=== PATIENT | male | born 1960 | race American Indian/Alaskan Native ===

== ENCOUNTER 2021-04-22 10:01 | Observation (INO) | payer OTHER ==
[2021-04-22] MEDS ORDERED: HYDROcodone/ACETAMINOPHEN 10-325MG TAB PO ONE (11:12)
[2021-04-22] MEDS ORDERED: LIDOCAINE (1%) 10 MG/1 ML VIAL 20 ML MDV INFILTRATI ONE (11:12)
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
[2021-04-22 11:55] LABS: Basophils % (Auto) 0.3 % (0.0-1.8); Eosinophils % (Auto) 0.2 % (0.0-4.3); Hematocrit 36.5 % (35.5-45.6); Lymphocytes % (Auto) 8.3 % (13.4-35.0); Mean Corpuscular HGB Conc 33 % (32-34); Mean Corpuscular Volume 87 fl (84-94); Monocytes # (Auto) 0.8 K/mm3 (0.0-0.8); Platelet Count 265 K/mm3 (140-440); Red Cell Distribution Width 14.9 % (13.2-15.2)
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
[2021-04-22 12:06] LABS: Alanine Aminotransferase 45 units/L (7-56); Albumin 4.1 g/dL (3.9-5); Blood Urea Nitrogen 14 mg/dL (9-20); Calcium 9.1 mg/dL (8.4-10.2); Hemolysis Index 4
[2021-04-22 12:09] LABS: BUN/Creatinine Ratio 28
[2021-04-22] MEDS ORDERED: TETANUS,DIPH,PERTUSS(ACELL) VACCINE 0.5 ML SYRINGE IM ONE (13:17)
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
[2021-04-22] MEDS ORDERED: NEOMY 3.5 MG/BACIT 400 UNITS/POLY B 5000 UNITS/GM OINT PACKET TP ONE (16:00)
--- NOTE | 2021-04-22 18:00 | Emergency Department Report ---
Blank Doc - Documentation Documentation: Procedure noted: Laceration repair Lidocaine 2% used -approximately 20 cc total for all wounds Wounds irrigated well with normal saline approximately 400 cc Location #1: Left hand -- ~4 cm superficial laceration dorsal left hand. Bleeding controlled with pressure. Fifteen sutures placed using 4-0 Ethilon; approximately 6 cm deep laceration noted to the thenar eminence of the left hand, with no foreign body, no tendon in the muscle or fascia injury. No active bleeding. Sixteen sutures placed using 4-0 Ethilon Location#2: Left wrist/left hand --approximately 9 cm laceration starting at the base of the palmar surface of the left hand extending into the volar left wrist; laceration is deep but without any apparent foreign body, tendon or muscle injury; bleeding controlled with pressure. Twenty 4 sutures placed using 4-0 Ethilon Dressing applied Patient tolerated procedure well without any complications
[2021-04-22] MEDS ORDERED: oxyCODONE /ACETAMINOPHEN 5-325MG TAB PO PRN (23:23)
[2021-04-22] MEDS ORDERED: ACETAMINOPHEN 325 MG TAB PO PRN (23:23)
[2021-04-22] MEDS ORDERED: ONDANSETRON 4 MG/2 ML INJ IV PRN (23:23)
[2021-04-22] MEDS ORDERED: HYDROmorphone 1 MG/1 ML INJ IV PRN (23:23)
[2021-04-22] MEDS ORDERED: IBUPROFEN 600 MG TAB PO PRN (23:23)
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
[2021-04-22] MEDS ORDERED: IPRATROPIUM/ALBUTEROL SULFATE 3 ML AMPUL.NEB IH PRN (23:27)
[2021-04-22] MEDS ORDERED: KETOROLAC 30 MG/1 ML INJ IV PRN (23:28)
[2021-04-22] MEDS ORDERED: SODIUM CHLORIDE 0.9% 1000 ML 1,000 ML IV SCH (23:30)
[2021-04-22] MEDS ORDERED: ALBUTEROL 2.5 MG/3 ML NEBU IH PRN (23:47)
[2021-04-23 04:45] VITALS: BP 157/65
[2021-04-23 06:08] LABS: Basophils % (Auto) 0.1 % (0.0-1.8); Eosinophils % (Auto) 0.2 % (0.0-4.3); Hematocrit 34.6 % (35.5-45.6); Hemoglobin 11.5 gm/dl (11.8-15.2); Lymphocytes # (Auto) 1.6 K/mm3 (1.2-5.4); Lymphocytes % (Auto) 15.6 % (13.4-35.0); Mean Corpuscular HGB Conc 33 % (32-34); Mean Corpuscular Volume 87 fl (84-94); Monocytes # (Auto) 0.9 K/mm3 (0.0-0.8); Monocytes % (Auto) 9.3 % (0.0-7.3); Platelet Count 249 K/mm3 (140-440); Red Cell Distribution Width 14.7 % (13.2-15.2)
[2021-04-23 06:17] LABS: Alanine Aminotransferase 37 units/L (7-56); Albumin 3.5 g/dL (3.9-5); Blood Urea Nitrogen 9 mg/dL (9-20); Calcium 8.6 mg/dL (8.4-10.2); Hemolysis Index 0
[2021-04-23 07:03] LABS: BUN/Creatinine Ratio 15
[2021-04-23] MEDS: FAMOTIDINE 20 MG TAB PO SCH ×2 (10:47→21:40)
[2021-04-23] MEDS: HEPARIN 5,000 UNIT/1 ML VIAL SUB-Q SCH ×2 (10:47→21:41)
[2021-04-23] MEDS ORDERED: POTASSIUM CHLORIDE ER 20 MEQ TAB PO ONE (18:24)
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
== END 2021-04-23 23:32 | disposition home or self-care (01) ==
LOC: ED 10:01 → 4A 17:35
PROVIDERS: ADMIT Internal Medicine; ATTEND Internal Medicine
DX: S20.211A Contusion of right front wall of thorax, initial encounter (principal); S09.90XA Unspecified injury of head, initial encounter; S61.512A Laceration without foreign body of left wrist, initial encounter; S61.412A Laceration without foreign body of left hand, initial encounter; S27.321A Contusion of lung, unilateral, initial encounter; R07.81 Pleurodynia; Z87.891 Personal history of nicotine dependence; Z23 Encounter for immunization; V43.52XA Car driver injured in collision with other type car in traffic accident, initial encounter; Y93.89 Activity, other specified; Y92.89 Other specified places as the place of occurrence of the external cause; Y99.8 Other external cause status
CPT/HCPCS: 12005; 36415; 70450; 71260; 73110; 73130; 74177; 80053; 83690; 85025; 90471; 90715; 96361; 96372; 96374; 99285; A6250; G0378; J1644; J1885; J7030; Q9967